=== PATIENT | male | born 1965 ===

== ENCOUNTER 2019-09-19 18:07 | Observation (INO) | payer OTHER, SELFPAY ==
[2019-09-19 18:13] VITALS: BP 152/89; PULSE 85; RESP 16; TEMP 36.4; O2SAT 95; BMI 35.7
--- NOTE | 2019-09-19 18:26 | ED.DIZZY ---
HPI - Dizziness General Chief Complaint: Dizziness Stated Complaint: has vertigo x2 days, sent by his doctor Time Seen by Provider: 09/19/19 18:25 Source: patient Mode of arrival: Ambulatory Limitations: no limitations History of Present Illness HPI Narrative: 54M former smoker with strong cardiovascular history in his family presents with his for evaluation of a possible stroke. He states he awoke suddenly yesterday morning at 3:00 a.m. and was profoundly dizzy and felt that the room was spinning top to bottom. He states that the dizziness tends to be made worse when he sits upright or leans forward and lasts approximately 1 minute and improves when lying flat. He denies any recent injury nor headache. He denies any history of same. He denies any other neurologic symptoms such as numbness, tingling or weakness. He denies any focal neurologic findings. He was seen and evaluated by his primary care provider and sent here for a larger workup. Denies recent injury. MD complaint: dizziness Onset (ago): day(s) Timing: sudden onset Description: sense of movement and room spinning History of similar episodes: No History of trauma: No Severity: mild Relieving factors: remaining still Exacerbating factors: movement Associated symptoms: denies other symptoms Related Data Home Medications Medication Instructions Recorded Confirmed atorvastatin 40 mg PO BEDTIME 09/19/19 09/19/19 meclizine 12.5 mg PO Q6HR 09/19/19 09/19/19 Allergies Allergy/AdvReac Type Severity Reaction Status Date / Time Sulfa (Sulfonamide Allergy Verified 09/19/19 18:13 Antibiotics) Review of Systems Constitutional Constitutional: Denies chills, Denies fatigue, Denies fever(s), Denies frequent falls, Denies lethargy and Denies weakness Eyes Eyes: Denies change in vision, Denies eye discharge, Denies irritation and Denies loss of vision ENT Ears, Nose, Mouth, and Throat: Denies change in voice, Reports vertigo, Reports dizziness, Denies neck pain, Denies sore throat and Denies throat swelling Cardiovascular Cardiovascular: Denies chest pain, Denies irregular heart rhythm, Denies lightheadedness, Denies palpitations, Denies dyspnea, Denies dyspnea on exertion and Denies orthopnea Respiratory Respiratory: Denies cough, Denies dyspnea, Denies dyspnea on exertion and Denies wheezing Gastrointestinal Gastrointestinal: Denies abdominal pain, Denies change in bowel habits, Denies diarrhea, Denies nausea and Denies vomiting Genitourinary Genitourinary: Denies hematuria, Denies flank pain, Denies urinary incontinence and Denies urinary urgency Musculoskeletal Musculoskeletal: Denies back pain, Denies muscle weakness, Denies neck pain, Denies numbness and Denies tingling Integumentary/Breasts Skin/Breast: Denies pruritus, Denies erythema, Denies rash and Denies wounds Neurologic Neurologic: Denies behavioral changes, Denies confusion, Reports vertigo, Reports dizziness, Denies frequent falls, Denies loss of vision, Denies numbness, Denies tingling and Denies weakness Psychiatric Psychiatric: Denies anxiety, Denies behavioral changes, Denies confusion, Denies depression, Denies homicidal ideation and Denies suicidal ideation Endocrine Endocrine: Denies fatigue, Denies flushing and Denies palpitations Hematologic/Lymphatic Hematologic/Lymphatic: Denies easy bruising Allergic/Immunologic Allergic/Immunologic: Denies urticaria, Denies throat swelling and Denies wheezing Patient History Medical History (Updated 09/19/19 @ 22:43 by AMISHA Velasquez) Hyperlipidemia (Acute) Left carpal tunnel syndrome (Acute) Obstructive sleep apnea (Acute) Surgical History (Updated 09/19/19 @ 22:43 by AMISHA Velasquez) No history of previous surgery (Acute) Family History (Updated 09/19/19 @ 22:48 by AMISHA Velasquez) Father Hyperlipidemia Mother Hypertension Cardiac disease Stented coronary artery Hypothyroidism Brother Obstructive sleep apnea Sister Obstructive sleep apnea Social History household members: spouse and children Smoking Status: Former smoker alcohol intake: former Smoking Status: Former smoker Exam Narrative Exam Narrative: GENERAL: [54] year old patient appears stated age. Obese, resting comfortably HEAD: Atraumatic. Normocephalic. EYES: Pupils equal round and reactive. Extraocular motions intact. No scleral icterus. No injection or drainage. ENT: Nose without bleeding, purulent drainage. Throat without erythema, tonsillar hypertrophy or exudate. Airway patent. NECK: Trachea midline. Non tender CARDIOVASCULAR: Regular rate and rhythm without murmurs, gallops, or rubs. RESPIRATORY: Clear to auscultation. Breath sounds equal bilaterally. No wheezes, rales, or rhonchi. GASTROINTESTINAL: Abdomen soft, non-tender, nondistended. EXTREMITIES: No edema or joint tenderness. BACK: Nontender without deformity or crepitance. No flank tenderness. NEURO: AOx3. SKIN: No rash or erythema of visible areas Initial Vital Signs Initial Vital Signs: Vital Signs Temperature 97.5 F L 09/19/19 18:13 Pulse Rate 85 09/19/19 18:13 Respiratory Rate 16 09/19/19 18:13 Blood Pressure 152/89 H 09/19/19 18:13 Pulse Oximetry 95 09/19/19 18:13 Scores NIH Stroke Scale Level of Conciousness: Alert, keenly responsive Ask month/age: Answers both questions correctly. Open/close eyes, close hand: Performs both tasks correctly Best gaze horizontal: Normal Visual haro: No visual loss Facial palsy: Normal symetrical movement Left arm drift: No drift for full 10 sec Right arm drift: No drift for full 10 sec Left leg drift: No drift for full 10 sec Right leg drift: No drift for full 10 sec Limb ataxia: Absent Sensory on face/arms/legs: Normal, no sensory loss Best language: No aphasia, normal Dysarthria: Normal Extinction or inattention: No abnormality Total NIH Stroke scale score: 0 Course Course Course Narrative: Head impulse test: No Loss of fixation with corrective saccade Nystagmus: unidirectional, vertical with patient sitting upright and tilting forward Skew Deviation: grossly absent Orders Ordered: ED Orders 09/19/19 19:01 CT head/brain wo con Stat 09/19/19 19:24 EKG-12 Lead Stat 09/19/19 19:40 Basic Metabolic Panel Stat Complete Blood Count AUTO DIFF Stat Troponin I Stat Acetaminophen (Tylenol) 650 mg PO Q6HR PRN PRN Reason: Fever/Mild Pain (1-3) Aspirin (Aspirin Ec) 81 mg PO DAILY [facility] Atorvastatin Calcium (Lipitor) 40 mg PO BEDTIME JOSLYN Last Admin: 09/19/19 23:42 Dose: 40 mg Documented by: SNEHA Enoxaparin Sodium (Lovenox) 40 mg SUBCUT DAILY JOSLYN Meclizine HCl (Antivert) 25 mg PO TID PRN PRN Reason: Vertigo Last Admin: 09/19/19 23:42 Dose: 25 mg Documented by: SNEHA Naloxone HCl (Narcan) 0.2 mg IV Q2MIN PRN PRN Reason: Opiate Reversal Ondansetron HCl (Zofran) 4 mg IV Q8HR PRN PRN Reason: Nausea And Vomiting Sodium Chloride (Normal Saline 0.9% Flush) 10 ml IV PRN PRN PRN Reason: Flush Sodium Chloride (Normal Saline 0.9% Flush) 10 ml IV BID JOSLYN Discontinued Medications Aspirin (Aspirin Chew) 324 mg PO NOW ONE Stop: 09/19/19 20:59 Last Admin: 09/19/19 21:03 Dose: 324 mg Documented by: ESTEFANY Sodium Chloride (Normal Saline 0.9%) 1,000 mls @ 150 mls/hr IV CONT JOSLYN Last Infusion: 09/19/19 22:05 Dose: 0 mls/hr Documented by: Admin: 09/19/19 19:40 Dose: 150 mls/hr Documented by: ESTEFANY Consultations Consultation #1: call to [facility] Neurology ([facility] Stroke Physician). We discuss rapid onset, largely reproduceable and perhaps fatigueable. Rodrigo Hallpike was not terribly helpful. Though patient did not currently have nystagmus I performed HINTS exam and discussed lack of classic peripheral findings with neurology. Given patient's risk profile, unclear etiology of dizziness, lack of classic exam findings for peripheral vertigo as well as inclement weather and his place of residence in the [facility] we share the opinion that patient meets TIA criteria and will need typical workup in the hospital including MRI +/- echo Consultation #2: hospitalist happy to accept on his service Vital Signs Vital signs: Vital Signs - 8 hr 09/19/19 18:13 09/19/19 18:53 09/19/19 19:45 Temperature 97.5 F L Pulse Rate 85 92 H 82 Respiratory Rate 16 17 16 Blood Pressure 152/89 H Blood Pressure [Right Arm] 156/93 H 112/91 H Pulse Oximetry 95 94 94 09/19/19 20:30 Temperature Pulse Rate 84 Respiratory Rate 16 Blood Pressure Blood Pressure [Right Arm] 146/94 H Pulse Oximetry 95 MDM - Dizziness Lab Data Result diagrams: 09/19/19 19:40 09/19/19 19:40 Labs: Lab Results 09/19/19 09/19/19 Range/Units 19:40 19:40 WBC 7.4 (4.5-11.0) X10^3/uL RBC 4.95 (4.5-5.9) X10^6/uL Hgb 15.6 (13.5-17.5) g/dL Hct 45.3 (41-53) % MCV 91.5 (80-100) fL MCH 31.5 (26-34) PG MCHC 34.4 (30-36) % RDW 14.8 (11.6-14.8) % Plt Count 323 (150-400) X10^3/uL Neut % (Auto) 58.3 (50-75) % Lymph % (Auto) 25.4 (25-40) % [place] % (Auto) 12.5 (3-14) % Eos % (Auto) 3.2 (2-4) % Baso % (Auto) 0.6 (0-2) % Neut # (Auto) 4300 (3112-4415) /uL Lymph # (Auto) 1900 (0180-8278) /uL [place] # (Auto) 900 (0-900) /uL Eos # (Auto) 200 (0-450) /uL Baso # (Auto) 0 (0-100) /uL Sodium 140 (137-145) mmol/L Potassium 3.8 (3.4-5.1) mmol/L Chloride 102 (98-107) mmol/L Carbon Dioxide 29 (22-32) mmol/L BUN 20 (9-20) mg/dL Creatinine 0.80 (0.66-1.25) mg/dL Estimated GFR > 60.0 (>60) mL/min BUN/Creatinine Ratio 25.0 H (6-22) Glucose 81 (70-100) mg/dL Calcium 9.4 (8.4-10.2) mg/dL Troponin I < 0.012 (0.01-0.034) ng/mL Discharge Plan Departure Patient Disposition: Admitted as Observation Clinical Impression: Transient cerebral ischemia Qualifiers: Transient cerebral ischemia type: unspecified Qualified Code(s): G45.9 - Transient cerebral ischemic attack, unspecified Discharge Date/Time: 09/19/19 21:32 Admit Date/Time: 09/19/19 20:59 Admit Provider: Zhang Oleary
[2019-09-19 18:53] VITALS: BP 156/93; PULSE 92; RESP 17; O2SAT 94
--- NOTE | 2019-09-19 19:01 | DI.CT.S_ITS ---
PROCEDURE: CT HEAD/BRAIN WO CON INDICATIONS: stroke like symptoms, sent by PCP TECHNIQUE: Noncontrast 4.5 mm thick angled axial sections acquired from the foramen magnum to the vertex, with coronal and sagittal reformats. For radiation dose reduction, the following was used: automated exposure control, adjustment of mA and/or kV according to patient size. COMPARISON: None. FINDINGS: Image quality: Excellent. CSF spaces: Basal cisterns are patent. No extra-axial fluid collections. Ventricles are normal in size and shape. Brain: No midline shift. No intracranial masses or hemorrhage. Spaulding-white matter interface is normal. Skull and face: Calvarium and visualized facial bones are intact, without suspicious lesions. Sinuses: Mild ethmoid sinus mucosal thickening. Mastoids are clear. IMPRESSION: 1. No acute intracranial abnormalities. 2. Cerebral volume loss and chronic microvascular ischemic changes. Dictated by: Radha Fish M.D. on 09/19/2019 at 19:41 Approved by: Radha Fish M.D. on 09/19/2019 at 19:44
[2019-09-19] MEDS: SODIUM CHLORIDE 0.9% 1,000 ML 150 ML IV (19:40)
[2019-09-19 19:45] VITALS: BP 112/91; PULSE 82; RESP 16; O2SAT 94
[2019-09-19 19:52] LABS: Add Manual Diff / Slide Review NO; Basophils Absolute Auto 0 /uL (0-100); Basophils Percent Auto 0.6 % (0-2); Eosinophils Absolute Auto 200 /uL (0-450); Eosinophils Percent Auto 3.2 % (2-4); Hematocrit 45.3 % (41-53); Hemoglobin 15.6 g/dL (13.5-17.5); Lymphocytes Absolute Auto 1900 /uL (1100-4500); Lymphocytes Percent Auto 25.4 % (25-40); Mean Corpuscular HGB Conc 34.4 % (30-36); Mean Corpuscular Hemoglobin 31.5 PG (26-34); Mean Corpuscular Volume 91.5 fL (80-100); Monocytes Absolute Auto 900 /uL (0-900); Monocytes Percent Auto 12.5 % (3-14); Neutrophils Absolute Auto 4300 /uL (1500-7000); Neutrophils Percent Auto 58.3 % (50-75); Platelet Count 323 X10^3/uL (150-400); Red Blood Cell Count 4.95 X10^6/uL (4.5-5.9); Red Cell Distribution Width 14.8 % (11.6-14.8); White Blood Cell Count 7.4 X10^3/uL (4.5-11.0)
[2019-09-19 20:06] LABS: Blood Urea Nitrogen 20 mg/dL (9-20); Calcium 9.4 mg/dL (8.4-10.2); Carbon Dioxide 29 mmol/L (22-32); Chloride 102 mmol/L (98-107); Estimated Glomerular Filt Rate > 60.0 mL/min (>60); Glucose 81 mg/dL (70-100); HEMOLYSIS 26 (0-50); Potassium 3.8 mmol/L (3.4-5.1); Sodium 140 mmol/L (137-145)
[2019-09-19 20:18] LABS: Troponin I < 0.012 ng/mL (0.01-0.034)
[2019-09-19 20:30] VITALS: BP 146/94; PULSE 84; RESP 16; O2SAT 95
[2019-09-19] MEDS: ASPIRIN 81 MG CHEW TAB 324 MG PO (21:03)
[2019-09-19 22:15] VITALS: BP 132/60; PULSE 96; RESP 18; TEMP 36.5; O2SAT 95
[2019-09-19 22:20] VITALS: BMI 35.7
--- NOTE | 2019-09-19 22:25 | P.HP_ITS ---
History of Present Illness History of Present Illness Date Patient Seen: 09/19/19 Time Patient Seen: 21:25 Chief complaint: has vertigo x2 days, sent by his doctor Narrative: Mr. Seymour De La Fuente is a 54-year-old male patient with history significant for hyperlipidemia, obstructive sleep apnea as well as a strong family history of cardiovascular disease who was sent to the ER by his primary care provider for persistent vertigo and stroke evaluation. The patient reports waking up suddenly at 3:00 a.m. yesterday with a severe vertigo in and up to down direction with associated diaphoresis and nausea. The patient states his symptoms are worsened by sitting or leaning forward and better when lying flat. He was able to return to sleep and upon waking in the morning had a recurrence of symptoms with the associated diaphoresis and nausea. Since that time he has had no more nausea or diaphoresis but with continued have vertigo. No prior episodes of vertigo, no history of trauma. He denies headache, ataxia or disequilibrium, has no numbness or tingling, no extremity weakness, visual changes, slurred speech or aphasia. The patient reports no recent illness, fevers or chills, nasal congestion or sore throat. He has no complaints of chest pain or palpitations or personal history of cardiac disease. He has no shortness of breath cough or wheezing and is a past smoker quitting 28 years ago. Reports no complaints of abdominal pain, has no heartburn and nausea has resolved. He denies urinary symptoms or changes in bowel habits. Upon arrival to the ER the patient is afebrile with a temperature 97.5?, heart rate of 85, blood pressure 152/89, respirations of 16 saturating 95% on room air. Patient underwent head CT which finds no acute intracranial abnormalities, notes cerebral volume loss and chronic microvascular changes. NIH score in the ED is 0. On laboratory analysis the patient has normal white count of 7 point, hemoglobin of 15.6, hematocrit of 45.3 and platelets of 323. His electrolytes are within normal range and has a BUN of 20 creatinine is 0.8. His nonfasting glucose is 81. Troponin is less than 0.012. HINTS exam finds vertical nystagmus, negative skew, negative corrective saccade. ED provider spoke with neurology regarding findings who presented concern for possible cerebellar lesion. Patient received aspirin 324 mg in the emergency department is admitted to the medicine service for vertigo, possible cerebellar TIA. Patient History Medical History (Updated 09/19/19 @ 22:43 by AMISHA Velasquez) Hyperlipidemia (Acute) Left carpal tunnel syndrome (Acute) Obstructive sleep apnea (Acute) Surgical History (Updated 09/19/19 @ 22:43 by AMISHA Velasquez) No history of previous surgery (Acute) Family & Social History Family History (Updated 09/19/19 @ 22:48 by AMISHA Velasquez) Father Hyperlipidemia Mother Hypertension Cardiac disease Stented coronary artery Hypothyroidism Brother Obstructive sleep apnea Sister Obstructive sleep apnea Safety & Behavioral: Feels Safe in Current Yes Environment Been Physically Hurt or No Threatened By a Person Tobacco & Substance use: Smoking Status Former smoker Comment: Patient lives in a single family home on [facility] with his to whom he has been for 22 years. He provides a history of his father having hyperlipidemia and related to an [place]. His mother is living and has hypertension hypothyroidism and has cardiac disease having had stent placement. He has 1 brother 1 sister both with obstructive sleep apnea. He has 4 children all reportedly in good health. 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 Alcohol: Patient quit drinking alcohol in 1991. Substance use the patient denies recreation pharmaceuticals herbal or cannabis products. Advanced directives: The patient does not have a formal advanced directive but states his desire to be FULL CODE. He designates his Nikki to be his surrogate decision maker. Meds Home Medications and Allergies Home Medications Medication Instructions Recorded Confirmed Type atorvastatin 40 mg PO BEDTIME 09/19/19 09/19/19 History meclizine 12.5 mg PO Q6HR 09/19/19 09/19/19 History Allergies Allergy/AdvReac Type Severity Reaction Status Date / Time Sulfa (Sulfonamide Allergy Verified 09/19/19 18:13 Antibiotics) Review of Systems Review of Systems Narrative: All systems reviewed and found unremarkable under discussed in the HPI above. Exam Vital Signs (past 8 hours): - 09/19/19 18:13 09/19/19 18:53 09/19/19 19:45 Temperature 97.5 F L Pulse Rate 85 92 H 82 Respiratory Rate 16 17 16 Blood Pressure 152/89 H Blood Pressure [Right Arm] 156/93 H 112/91 H Pulse Oximetry 95 94 94 09/19/19 20:30 09/19/19 22:15 Temperature 97.7 F Pulse Rate 84 96 H Respiratory Rate 16 18 Blood Pressure 132/60 Blood Pressure [Right Arm] 146/94 H Pulse Oximetry 95 95 Oxygen Delivery Method Room Air Narrative Exam Narrative: GENERAL APPEARANCE: well developed, obese male, in no acute distress. HEENT: Symmetrical face ease, no ptosis, PERRLA, conjunctiva clear, EOMs intact with positive vertical nystagmus, no sinus tenderness to percussion, no rhinorrhea, mucous membranes are moist and pink without lesions or exudate. NECK/THYROID: neck supple, no JVD, no carotid bruit, no thyromegaly, trachea midline. LYMPH NODES: no cervical or supraclavicular lymphadenopathy. SKIN: [place], warm and dry, no visible lesions, rashes, ulcerations or petechiae. HEART: regular rate and rhythm, S1-S2, no murmur, no rubs or gallops, brisk capillary refill, no edema LUNGS: clear to auscultation bilaterally, no coarseness crackles or wheezing, no cough present CHEST: Symmetrical movement, no accessory muscle use, good tidal volume. ABDOMEN: Soft, round, dull to percussion, nontender, no organomegaly, no flank tenderness, active bowel tones. BACK: Normal curvature, nontender to palpation. EXTREMITIES: moves all extremities, no extremity drift, strength is 5/5 and symmetrical, no deformities or joint effusions. NEUROLOGIC: AAO x4, no aphasia or ataxia, cranial nerves II-XII grossly intact, sensation intact to light touch, vertical nystagmus, negative skew or saccade. PSYCH: Good judgment, good insight, linear thought process, cooperative, a ppropriate with stable behavior Objective Labs Result Diagrams: 09/19/19 19:40 09/19/19 19:40 Labs: Laboratory Results - last 24 hr 09/19/19 09/19/19 19:40 19:40 WBC 7.4 RBC 4.95 Hgb 15.6 Hct 45.3 MCV 91.5 MCH 31.5 MCHC 34.4 RDW 14.8 Plt Count 323 Neut % (Auto) 58.3 Lymph % (Auto) 25.4 [place] % (Auto) 12.5 Eos % (Auto) 3.2 Baso % (Auto) 0.6 Neut # (Auto) 4300 Lymph # (Auto) 1900 [place] # (Auto) 900 Eos # (Auto) 200 Baso # (Auto) 0 Sodium 140 Potassium 3.8 Chloride 102 Carbon Dioxide 29 BUN 20 Creatinine 0.80 Estimated GFR > 60.0 BUN/Creatinine Ratio 25.0 H Glucose 81 Calcium 9.4 Troponin I < 0.012 Assessment & Plan Assessment & Plan narrative: This is a 54-year-old male patient with a history of hyperlipidemia and strong family history of cardiovascular disease who was sent by his primary care provider related to atypical vertigo and concern for possible stroke symptoms. Presentation is unclear for central versus peripheral etiology. 1. Acute atypical vertigo, possible TIA, present on admission, active -symptoms with abrupt onset 3:00 a.m. yesterday waking the patient from sleep. Associated symptoms of diaphoresis and nausea, now resolved. -symptoms have been continuous exacerbated by sitting up or leaning forward. No prodromal symptoms. No personal history of cardiovascular disease, no chest pain or palpitations, EKG is sinus rhythm. -NIH score is 0, ABCD2 score is 3. -positive vertical nystagmus, negative skew, negative saccade. No diplopia. -CT the head is negative for intracranial pathology. -ordered aspirin 81 mg daily. -meclizine 25 mg 3 times daily. -MRI stroke protocol in the morning. -patient on telemetry, will consider echo in the morning -obtain chemistries and lipid panel in the morning. 2. Hyperlipidemia, chronic, presumed stable. -will continue patient's home regimen of atorvastatin 40 mg at bedtime. -will obtain lipid panel in the morning. 3. Elevated blood pressure reading without diagnosis of hypertension, present on admission, active. -patient presents with blood pressure 152/89 upon arrival to the emergency department. -diastolic pressures remain elevated in the 90s while in the emergency department. -patient is on no antihypertensives, will monitor blood pressure and treat as needed. VTE prophylaxis: SCDs, Lovenox Diet: Heart healthy IVF: Saline lock The patient is admitted to the hospital related to severity symptoms the risk for potential complications adverse events. The patient is admitted as observation with expected length of stay to be less than 2 midnights. Scores ABCD2 Age >= 60 years: no Initial BP. Either SBP >= 140 or DBP >= 90.: yes Clinical features of the TIA: other symptoms Duration of symptoms: >= 60 minutes History of diabetes: no ABCD2 Score: 3 NIHSS Level of Conciousness: Alert, keenly responsive Ask month/age: Answers both questions correctly. Open/close eyes, close hand: Performs both tasks correctly Best gaze horizontal: Normal Visual haro: No visual loss Facial palsy: Normal symetrical movement Left arm drift: No drift for full 10 sec Right arm drift: No drift for full 10 sec Left leg drift: No drift for full 5 sec Right leg drift: No drift for full 5 sec Limb ataxia: Absent Sensory on face/arms/legs: Normal, no sensory loss Best language: No aphasia, normal Dysarthria: Normal Extinction or inattention: No abnormality Total NIH Stroke scale score: 0
[2019-09-19] MEDS: MECLIZINE HCL 12.5 MG TABLET 25 MG PO (23:42)
[2019-09-19] MEDS: ATORVASTATIN 20 MG TABLET 40 MG PO (23:42)
[2019-09-19 23:51] VITALS: BP 142/72; PULSE 95; RESP 19; TEMP 36.8; O2SAT 96
--- NOTE | 2019-09-20 00:06 | PC.NURSE ---
Addendum entered by Ambar Wolf R.N. 09/20/19 04:01: Up to bathroom. Initial dizziness when going from lying to sitting position which resolved after 1 minute. Walked to the bathroom with SBA. Denies any nausea or diaphoresis. Denies pain. NIH remains 0. Original Note: Patient is alert and oriented with NIH of 0. Breath sounds CTA with RA sat of 96%. HRR with telemetry reading of SR w/1st degree AVB; BP elevated at 142/74. Denies nausea. BT present and abdomen is soft. Denies dysuria, frequency or urgency. Able to move self in bed. States he has dizziness with movement; medicated with Meclizine. Discussed need to have SBA when out of bed related to dizziness in order to prevent falls and patient/ verbalize understanding. Denies pain. Calf SCD's applied as per MD order. Fall risk score is moderate and bed alarm is activated.
[2019-09-20 04:07] VITALS: BP 129/85; PULSE 82; RESP 18; TEMP 36.9; O2SAT 95
[2019-09-20 05:41] LABS: BUN Creatinine Ratio 23.3 (6-22); Blood Urea Nitrogen 21 mg/dL (9-20); Calcium 8.9 mg/dL (8.4-10.2); Carbon Dioxide 27 mmol/L (22-32); Chloride 102 mmol/L (98-107); Estimated Glomerular Filt Rate > 60.0 mL/min (>60); Glucose 98 mg/dL (70-100); HEMOLYSIS < 15 (0-50); Magnesium 1.8 mg/dL (1.6-2.3); Potassium 3.9 mmol/L (3.4-5.1); Sodium 138 mmol/L (137-145)
[2019-09-20 06:26] LABS: Prothrombin Time 11.5 SECONDS (10.1-12.7)
[2019-09-20 06:27] LABS: PTT Partial Thromboplastin Tim 31 SECONDS (26.4-36.2)
[2019-09-20 06:46] VITALS: BMI 36.6
[2019-09-20 07:10] LABS: Cholesterol 194 mg/dL (140-199); HDL Cholesterol 24 mg/dL (40-60); LDL Cholesterol Calculated 135 mg/dL (<100); Triglycerides 174 mg/dL (35-150)
[2019-09-20] MEDS: ASPIRIN EC 81 MG TABLET PO (08:03)
[2019-09-20] MEDS: ENOXAPARIN 40 MG/0.4 ML SYRINGE SUBCUT (08:03)
[2019-09-20] MEDS: SODIUM CHLORIDE 0.9% FLUSH 10 ML IV (08:11)
[2019-09-20] MEDS: MECLIZINE HCL 12.5 MG TABLET 25 MG PO ×2 (08:11→14:07)
--- NOTE | 2019-09-20 08:12 | PC.NURSE ---
Addendum entered by Isak Conner R.N. 09/20/19 14:38: Patient remains alert and oriented with a NIH scale of 0. Symptoms of dizziness continue intermittently, patient states that ordered meclizine helpful with symptoms. Care is ongoing. Original Note: Nurse Note Patient AandOx4 upon start of shift. NIH stroke scale score 0. Patient reports continued dizziness with ambulation, but states that the dizziness recedes after a period of standing. Patient denies any new symptoms as of this time. Care is ongoing.
[2019-09-20 09:30] VITALS: BP 129/100; PULSE 89; RESP 18; TEMP 36; O2SAT 97
--- NOTE | 2019-09-20 10:26 | PT.IIE ---
Surgical History (Last Updated 09/19/19 @ 22:43 by AMISHA Velasquez) No history of previous surgery (Acute) Medical History (Last Updated 09/19/19 @ 22:43 by AMISHA Velasquez) Hyperlipidemia (Acute) Left carpal tunnel syndrome (Acute) Obstructive sleep apnea (Acute) Physical Therapy Inpatient Evaluation/Re-Eval M1 PT/OT-IP Prior Functional Status Start: 09/20/19 08:40 Freq: NEEDED Status: Active Protocol: Document 09/20/19 09:00 (Rec: 09/20/19 10:24 [id number]) Medical Review Prior Functional Status Medical History Reviewed Yes Communication no deficits noted. Able to make needs known Mobility and Gait independent without AD. Active lifestyle Activities of Daily Living and IADL's independent for all ADLs and IADLs Social History Household Members spouse,children Living Arrangements House Number of Floors (Floors) One Floor Number of Stairs To Enter/Railing? 3 [place] w/o rail + door step Home Environment Standard Height Toilet,Walk in Shower,Built-In Shower Seat Employment Status [employer] Employed Additional Social History Comment Pt lives with his and 3/4 children and mother in law at [facility]. 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 The patient reports waking up suddenly at 3:00 a.m. yesterday with a severe vertigo in and up to down direction with associated diaphoresis and nausea. The patient states his symptoms are worsened by sitting or leaning forward and better when lying flat. No prior episodes of vertigo, no history of trauma. M2 PT-IP Current Condition Start: 09/20/19 08:40 Freq: NEEDED Status: Active Protocol: Document 09/20/19 09:00 (Rec: 09/20/19 10:24 [id number]) Physical Therapy Current Condition Current Condition Evaluation Date 09/20/19 Treatment Diagnosis Acute vertigo, difficulty in balance Onset Date 09/18/19 Weight Bearing Status Weight Bearing Status Full Weight Bearing M3 PT-IP Subjective Start: 09/20/19 08:40 Freq: NEEDED Status: Active Protocol: Document 09/20/19 09:00 (Rec: 09/20/19 10:24 [id number]) Subjective Physical Therapy Visit Type Type Initial Evaluation Visit Start Time 09:00 Visit Stop Time 09:45 Total Visit Minutes 45 Notes Per RN note, pt c/o vertigo with bed mobility and initiation of movement but recedes after a period of standing/ walking. Dr. Sullivan ordered MRI screen at 1030 am this morning to rule out TIA/ possible cerebellar stroke. Number of PARACHUTE RIGGER Visits 0 Physical Therapy Visit Comments Patient Comments Im getting better but it still makes me sweat when i have the vertigo especially getting in and out of the bed. Patient Goals To be vertigo free and return home with family. Therapy Pain Assessment Pain Present Pain Present Denied Pain M4 PT-IP Mobility and Gait Start: 09/20/19 08:40 Freq: NEEDED Status: Active Protocol: Document 09/20/19 09:00 (Rec: 09/20/19 10:24 [id number]) PT-Bed Mobility Assessment Supine to Sit Supine to Sit Standby Assistance Scooting Scooting to Edge of Bed Standby Assistance Scooting Up and Down in Bed Standby Assistance PT-Transfer Assessment Sit to and From Stand Sit to and from Stand Standby Assistance Equipment Transfer Assistive Device Gait Belt Orthotic/Prosthetic Devices or Brace: No Transfers Transfer Destination Bed,Chair Transfer Technique Stand Step Pivot Transfer Ability Level of Assist Standby Assistance Comments Mobility Comments Pt was up in bed upon assessment. Performed dione jason pike and Pat manuever for the first 20 minutes. (see treatment section) He then completed supine to long sit with SBA and bed rails since pt reported of fear of vertigo . He then sat at L EOB and able to sit to stand with SBA. He was able to amb to hallway after with SBA and no AD. He then returned to chair after gait assessment. No LOB noted. Call light within reach. Gait Assessment Gait Gait Assistance Required: Standby Assistance Distance (Feet) 300 Able to Maintain Weight Bearing Status Yes During Gait Assistive Devices Assistive Device Gait Belt Orthotic/Prosthetic Devices or Brace: No Gait Deviations General Gait Pattern Within Normal Limits Factors Limiting Gait Function Factors Limiting Gait Function Poor Balance Comments Gait Comments Pt denies discomfort during amb after Pat manuever. He was able to amb with head turns horizontally/ vertically without discomfort/ LOB. Stair Climbing Assessment Evaluation Level of Assist On Stairs Standby Assistance Technique/Endurance Stair Climbing Direction Ascend and Descend Stair Climbing Technique Step Over Step Number of Steps Climbed 3 Query Text: Stair Climbing Set # Repetitions (reps) 2 PT-Balance Assessment Sitting Balance and Reactions Static Sitting Balance Ability Normal Dynamic Sitting Balance Ability Normal Standing Balance and Reactions Static Standing Balance Ability Normal Dynamic Standing Balance Ability Normal Device Used none M5 PT-IP Objective Assessments Start: 09/20/19 08:40 Freq: NEEDED Status: Active Protocol: Document 09/20/19 09:00 (Rec: 09/20/19 10:24 [id number]) Orientation Orientation/Cognition Level of Alertness Alert Orientation Name,Age,Birthday,Month,Date, Year,Day of Week,Place, Situation Language Function Ability No Deficits Noted Safety Awareness Understands Safety Issues Memory Description No Deficits Noted Gross Range of Motion Upper Extremity ROM Assessment Within Functional Limits Lower Extremity ROM Assessment Within Functional Limits Strength Upper Extremity Strength Assessment Within Functional Limits Lower Extremity Strength Assessment Within Functional Limits Coordination Assessment Gross Coordination Gross Coordination WNL Assessment Finger to Nose Test Normal Performance Pronation/Supination Test Normal Performance Foot Tapping Test Normal Performance Heel on Corona Test Normal Performance Sensation Assessment Sensation Gross Sensation WNL Light Touch Intact Proprioception (Position) Intact Muscle Tone Muscle Tone WNL Yes M6 PT-IP Treatment Start: 09/20/19 08:40 Freq: NEEDED Status: Active Protocol: Document 09/20/19 09:00 (Rec: 09/20/19 10:24 [id number]) Physical Therapy Treatment Other Treatments Other Treatment Performed dione hallpike assessment performed and pt was +ve for R posterior canal which shows upbeat and horizontal nystagmus. Performed Pat's manuever who has nystagmus up to 30 secs for 1st position, 15 secs for 2nd position and ~ 5 secs for 3rd position. Pt reports mild dizziness after but tolerable. He was able to amb 300 ft , along with head turns without LOB/ dizziness. M7 PT-IP Assessment and Plan Start: 09/20/19 08:40 Freq: NEEDED Status: Active Protocol: Document 09/20/19 09:00 (Rec: 09/20/19 10:24 [id number]) PT Summary Assessment and Plan Potential Rehabilitation Potential Excellent Status of Condition at Evaluation Stable Summary Impairments Balance Assessment Summary Pt is a low complexity 54yo male admitted to for acute vertigo. CT scan =-ve and pt is scheduled to have MRI to rule out possible TIA/ cerebellar stroke. Pt shows + ve at R posterior canal for Dixhallpike assessment and performed Pat's manuever after. Pt reponded well with decreased vertigo symptoms but cont to have residual dizziness but was tolerable to him. He was able to amb in AC unit without AD, along with vertical/ horizontal head turns. Recommended pt to mobilize with nursing assistance at this point. Notified Dr. Sullivan regarding his BPPV symptoms. Pt will be safe to go home with his supportive family assistance once his medically stable with resolved symptoms/ MRI = -ve. He will also benefit from outpatient vestibular rehab . Goals Bed Mobility Goal Independent Transfer Goal Independent Gait Goal Independent Gait Distance 500 Frequency of Treatment Frequency Of Treatment Twice a Day Treatment Plan Physical Therapy Treatment Plan Bed Mobility Training,Transfer Training,Gait Training, Therapeutic Exercise,Balance Retraining,Post Op Education, Discharge Planning, Neuromuscular Re-ed,Manual Therapy Other Recommendations and Next Treatment reassess vestibular symptoms Focus bed mob, stair training Recommendations To Nursing Amount of Assist Needed Standby Assistance Discharge Recommendations PT Discharge Recommendations Home with Assistance, Outpatient PT
--- NOTE | 2019-09-20 11:31 | PM.DS.1 ---
History of Present Illness History of Present Illness Date Patient Seen: 09/20/19 Time Patient Seen: 11:31 Chief complaint: has vertigo x2 days, sent by his doctor Narrative: Mr. Seymour De La Fuente is a 54-year-old male patient with history significant for hyperlipidemia, obstructive sleep apnea as well as a strong family history of cardiovascular disease who was sent to the ER by his primary care provider for persistent vertigo and stroke evaluation. The patient reports waking up suddenly at 3:00 a.m. yesterday with a severe vertigo in and up to down direction with associated diaphoresis and nausea. The patient states his symptoms are worsened by sitting or leaning forward and better when lying flat. He was able to return to sleep and upon waking in the morning had a recurrence of symptoms with the associated diaphoresis and nausea. Since that time he has had no more nausea or diaphoresis but with continued have vertigo. No prior episodes of vertigo, no history of trauma. He denies headache, ataxia or disequilibrium, has no numbness or tingling, no extremity weakness, visual changes, slurred speech or aphasia. The patient reports no recent illness, fevers or chills, nasal congestion or sore throat. He has no complaints of chest pain or palpitations or personal history of cardiac disease. He has no shortness of breath cough or wheezing and is a past smoker quitting 28 years ago. Reports no complaints of abdominal pain, has no heartburn and nausea has resolved. He denies urinary symptoms or changes in bowel habits. Upon arrival to the ER the patient is afebrile with a temperature 97.5?, heart rate of 85, blood pressure 152/89, respirations of 16 saturating 95% on room air. Patient underwent head CT which finds no acute intracranial abnormalities, notes cerebral volume loss and chronic microvascular changes. NIH score in the ED is 0. On laboratory analysis the patient has normal white count of 7 point, hemoglobin of 15.6, hematocrit of 45.3 and platelets of 323. His electrolytes are within normal range and has a BUN of 20 creatinine is 0.8. His nonfasting glucose is 81. Troponin is less than 0.012. HINTS exam finds vertical nystagmus, negative skew, negative corrective saccade. ED provider spoke with neurology regarding findings who presented concern for possible cerebellar lesion. Patient received aspirin 324 mg in the emergency department is admitted to the medicine service for vertigo, possible cerebellar TIA. Discharge Providers Provider Date of admission: 09/19/19 20:59 Discharge Date: 09/20/19 Primary care physician: Ki Valentin Consults: 09/19/19 22:19 Consult to Discharge Planning Routine Comment: 09/19/19 22:20 Consult to Physical Therapy Evaluate & Treat Comment: Vertigo, poss cerebellar CVA Physician Instructions: Evaluate and Treat 09/19/19 22:23 Consult to Occupational Therapy Evaluate & Treat Comment: vertigo, possible cerebellar CVA Physician Instructions: Evaluate and treat Discharge provider: Zhang Sullivan DO Summary Hospital Course Discharge Diagnosis: 1. BPPV, acute, present on admission, improving. 2. HLD, chronic 3. Elevated blood pressure without diagnosis of HTN. Hospital Course: This is a 54-year-old male patient with a history of hyperlipidemia and strong family history of cardiovascular disease who was sent by his primary care provider related to atypical vertigo and concern for possible stroke symptoms. Presentation was unclear for central versus peripheral etiology, however MRI was unremarkable, and symptoms are consistent with BPPV. 1. BPPV -patient was admitted with symptoms of BPPV but there was concern given his medical comorbidities including hyperlipidemia and elevated blood pressure on arrival over concern for possible stroke. CT head was negative, an MRI done the next morning was also negative. Patient was seen by physical therapy as well. His symptoms improved over the course of the hospitalization. Symptoms are reproducible especially upon head and turning to the right. -will give outpatient referral to PT here, given there is a vestibular specialist -continue meclizine as needed 2. Hyperlipidemia, chronic, presumed stable. -will continue patient's home regimen of atorvastatin 40 mg at bedtime. -lipid panel here showed poor control with elevated LDL, however patient admits he does not take it every day. Provided counseling on daily adherence to his medications. 3. Elevated blood pressure reading without diagnosis of hypertension, present on admission, active. -patient presents with blood pressure 152/89 upon arrival to the emergency department. -diastolic pressures remain elevated in the 90s while in the emergency department. -patient is on no antihypertensives, his blood pressure remains mildly elevated. He should follow-up with his primary care provider for further blood pressure check as an outpatient. Exam Vital Signs (past 8 hours): - 09/20/19 04:07 09/20/19 09:30 Temperature 98.4 F 96.8 F L Pulse Rate 82 89 Respiratory Rate 18 18 Blood Pressure 129/85 129/100 H Pulse Oximetry 95 97 Oxygen Delivery Method Room Air Oxygen Flow Rate 0 Narrative Exam Narrative: GENERAL APPEARANCE: Well developed, well nourished, in no acute distress. SKIN: Inspection of the skin reveals no rashes, ulcerations or petechiae. HEENT: The sclerae were anicteric and conjunctivae were pink and moist. Extraocular movements were intact and pupils were equal, round with normal accommodation. External inspection of the ears and nose showed no scars, lesions, or masses. Lips, teeth, and gums showed normal mucosa. The oral mucosa, hard and soft palate, tongue and posterior pharynx were unremarkable. No nystagmus was noted. NECK: Supple and symmetric. There was no thyroid enlargement, and no tenderness, or masses were felt. CHEST: Normal AP diameter and normal contour without any kyphoscoliosis. LUNGS: Auscultation of the lungs revealed no wheezes, rhonchi, or rales. CARDIOVASCULAR: There was a regular rate and rhythm without any murmurs, gallops, rubs. Peripheral pulses were 2+ and symmetric. ABDOMEN: Soft and nontender with normal bowel sounds. No ascites was noted. MUSCULOSKELETAL: There was no tenderness or effusions noted. Muscle strength and tone were normal. EXTREMITIES: No cyanosis, clubbing or edema. NEUROLOGIC: Alert and oriented x 3. Normal affect. Gait was normal. Strength is +5/5 in the Upper Extremities and Lower Extremities Bilaterally. Sensation to touch was normal. Rapid alternating movements smooth and coordinated, heel to neville unremarkable. Finger to nose testing also unremarkable. Patient complained of increasing dizziness when lying flat and when head was turned to the right. No nystagmus was noted upon head turn. CN2-12 grossly intact b/l. Objective Labs Result Diagrams: 09/19/19 19:40 09/20/19 05:00 Labs: Laboratory Results - last 24 hr 09/19/19 09/19/19 09/20/19 19:40 19:40 05:00 WBC 7.4 RBC 4.95 Hgb 15.6 Hct 45.3 MCV 91.5 MCH 31.5 MCHC 34.4 RDW 14.8 Plt Count 323 Neut % (Auto) 58.3 Lymph % (Auto) 25.4 Rooks % (Auto) 12.5 Eos % (Auto) 3.2 Baso % (Auto) 0.6 Neut # (Auto) 4300 Lymph # (Auto) 1900 Rooks # (Auto) 900 Eos # (Auto) 200 Baso # (Auto) 0 PT 11.5 INR 1.0 APTT 31 Sodium 140 Potassium 3.8 Chloride 102 Carbon Dioxide 29 BUN 20 Creatinine 0.80 Estimated GFR > 60.0 BUN/Creatinine Ratio 25.0 H Glucose 81 Calcium 9.4 Magnesium Troponin I < 0.012 Triglycerides Cholesterol LDL Cholesterol, Calc HDL Cholesterol 09/20/19 09/20/19 05:00 05:00 WBC RBC Hgb Hct MCV MCH MCHC RDW Plt Count Neut % (Auto) Lymph % (Auto) Rooks % (Auto) Eos % (Auto) Baso % (Auto) Neut # (Auto) Lymph # (Auto) Rooks # (Auto) Eos # (Auto) Baso # (Auto) PT INR APTT Sodium 138 Potassium 3.9 Chloride 102 Carbon Dioxide 27 BUN 21 H Creatinine 0.90 Estimated GFR > 60.0 BUN/Creatinine Ratio 23.3 H Glucose 98 Calcium 8.9 Magnesium 1.8 Troponin I Triglycerides 174 H Cholesterol 194 LDL Cholesterol, Calc 135 H HDL Cholesterol 24 L Discharge Plan Discharge Plan Patient Disposition: Home Discharge comment: You were admitted to the hospital for dizziness over concern for a possible stroke. Your MRI was normal and your symptoms are consistent with BPPV. Please continue meclizine as needed and continue to take your lipitor every day. I have given you a referral for PT here so that you can be seen by a vestibular specialist. Discharge orders & Medications Prescriptions: Continued atorvastatin 40 mg Tablet 40 mg PO BEDTIME RF: 0 meclizine 12.5 mg Tablet 12.5 mg PO Q6HR RF: 0 Follow up/Referrals: Ki Valentin [Primary Care Provider] - Jose Flanagan, PT [Physical Therapist] - 3-5 Days (For vestibular therapy for BPPV) Discharge Health Status Health Concerns: BPPV, Right Diet/Activity/Treatments Diet: Diet as Tolerated Activity: As tolerated, sit up slowly and avoid positional changes. Visit Report/Discharge Packet Instructions: Benign Paroxysmal Positional Vertigo Discharge Data Primary Care Provider: Ki Valentin Attending Provider: Zhang Oleary Admit Date/Time: 09/19/19 20:59
--- NOTE | 2019-09-20 11:45 | OT.IP.EVAL ---
Past Medical History (Last Updated 09/19/19 @ 22:43 by AMISHA Velasquez) Hyperlipidemia (Acute) Left carpal tunnel syndrome (Acute) Obstructive sleep apnea (Acute) Surgical History (Last Updated 09/19/19 @ 22:43 by AMISHA Velasquez) No history of previous surgery (Acute) Occupational Therapy Inpatient Evaluation/Re-Eval M1 PT/OT-IP Prior Functional Status Start: 09/20/19 12:33 Freq: NEEDED Status: Active Protocol: Document 09/20/19 12:33 [facility] (Rec: 09/20/19 12:58 [facility] [id number]) Medical Review Prior Functional Status Medical History Reviewed Yes Diet/Fluid Consistency Regular,Thin Liquids Communication no deficits noted. Able to make needs known Mobility and Gait independent without AD. Active lifestyle Activities of Daily Living and IADL's independent for all ADLs and IADLs Social History Household Members spouse,children Living Arrangements House Number of Floors (Floors) One Floor Number of Stairs To Enter/Railing? 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 The patient reports waking up suddenly at 3:00 a.m. yesterday with a severe vertigo in and up to down direction with associated diaphoresis and nausea. The patient states his symptoms are worsened by sitting or leaning forward and better when lying flat. No prior episodes of vertigo, no history of trauma. M2 OT-IP Current Condition Start: 09/20/19 12:33 Freq: Status: Active Protocol: Document 09/20/19 12:33 [facility] (Rec: 09/20/19 12:58 [facility] [id number]) Occupational Therapy Current Condition Current Condition Evaluation Date 09/20/19 Treatment Diagnosis Benign Paroxysmal Positional Vertigo Diagnosis Onset Date 09/19/19 Weight Bearing Status Weight Bearing Status Weight Bear as Tolerated M3 OT- IP Subjective and Pain Start: 09/20/19 12:33 Freq: Status: Active Protocol: Document 09/20/19 12:33 [facility] (Rec: 09/20/19 12:58 [facility] [email or web address]) OT- Subjective Occupational Therapy Visit Type Type Initial Evaluation Visit Start Time 11:45 Visit Stop Time 12:15 Total Visit Minutes 30 Occupational Therapy Visit Comments Patient Comments Pt states still feeling dizzy and not feeling steady on his feet. OT Pain Assessment Pain When Pain Assessed At Rest Pain Present Pain Present Denied Pain M4 OT- IP ADL's Start: 09/20/19 12:33 Freq: Status: Active Protocol: Document 09/20/19 12:33 [facility] (Rec: 09/20/19 12:58 [facility] [id number]) OT OFX-Xfpu-Alatvpy Comments OT Self-Feeding Comments Pt able to drink from this water bottle but not feeling up to eating at this time. OT ADL-Grooming General Evaluation Grooming Ability Independent Comments OT Grooming Comments Independent, however feeling dizzy and needing SBA for safety. OT ADL-Oral Care General Eval Oral Care Ability Independent OT ADL-Dressing Comments OT Dressing Comments Educated pt to go slowly and not move his head suddenly and in extreme movements especially to the right. Suggested use of LB dressing equipment, pt refusing at the time and states his kids and can assist at home. OT ADL-Toileting Comments OT Toileting Comments Pt not having to use the toilet. OT ADL-Bathing Comments OT Bathing Comments Pt not wanting to shower at this time. M6 OT- IP Functional Cognition Start: 09/20/19 12:33 Freq: Status: Active Protocol: Document 09/20/19 12:33 [facility] (Rec: 09/20/19 12:58 [facility] [id number]) Cognitive Factors Limiting Selfcare Function Cognitive Ability Level of Alertness Alert Patient Orientation Name,Place,Situation Attention Span Ability Capable of Focused Attention, Capable of Sustained Attention Ability to Follow Commands Able to Follow Multi-Step Commands Memory Description No Deficits Noted Safety Awareness Underestimates Need for Assistance Cognitive Comments Cognitive Assessment Comments Pt appears to be at baseline for cognition, just needing reminders to get help at home especially since he is dizzy and at times unsteady on his feel. OT- Vision and Hearing OT- Vision Assessment Vision Assessment Comments Nystagmus noted when scanning from side to side. M7 OT- IP Mobility and Balance Start: 09/20/19 12:33 Freq: Status: Active Protocol: Document 09/20/19 12:33 [facility] (Rec: 09/20/19 12:58 [facility] [id number]) OT- Bed Mobility Assessment Supine to Sit Supine to Sit Assist Independent Sit to Supine Sit to Supine Assist Independent Scooting Scooting to Edge of Bed Independent OT-Transfer Assessment Sit to and From Stand Sit to and from Stand Independent,Standby Assistance Transfers Transfer Ability Standby Assistance Technique Transfer Destination Bed,Chair Devices Transfer Assistive Devices None Comments Mobility Comments Pt initially tends to pull up into long sitting from bed mobility and complaining of being dizzy, educated to do log rolling instead and move slower and pt states dizziness was better. Pt able to walk in the room without assist to be able to garbage pick up worker his backpack and get items for grooming. Towards the end of grooming, pt getting very dizzy and having to sit down and needing close SBA to walk back to the recliner as swaying a little with his gait . BP 168/108 and 151/97, hospitalist aware. OT- Gait Assessment Comments Gait Ability Comments Pending on pt's dizziness, may need hand held assist or possible device especially if walking outside on the snow and uneven surfaces. Informed PT of pt's unsteadiness. OT- Balance Assessment Sitting Balance and Reactions Static Sitting Balance Ability Normal Standing Balance and Reactions Static Standing Balance Ability Good M8 OT- IP Objective Assessments Start: 09/20/19 12:33 Freq: Status: Active Protocol: Document 09/20/19 12:33 [facility] (Rec: 09/20/19 12:58 [facility] [email or web address]) OT Gross Range of Motion Upper Extremity Range of Motion Assessment Within Functional Limits OT Strength Upper Extremity Strength Assessment Within Functional Limits M9 OT- IP Assessment and Plan Start: 09/20/19 12:33 Freq: Status: Active Protocol: Document 09/20/19 12:33 [facility] (Rec: 09/20/19 12:58 [facility] [email or web address]) OT Summary Assessment and Plan Potential Rehabilitation Potential Good Analytic Complexity at Evaluation Low Summary OT Impairments Balance,Functional Mobility, Dressing,Toileting,Bathing Progress Towards Goals Slow Progress due to Medical Issues Assessment Summary Pt here for BPPV and looking to go home today. Initially to take a cab to the [place] however due to increased unsteadiness on his feet after OT eval, OT expressed concerned for pt walking on his own and best to have his come and pick him up from the hospital . Pt's to be called by case management to come and pick him up. Mainly pt needing assist due to spells of dizziness and otherwise is independent for needs. Hospital put in a referral to see vestibular specialist. Goals Self-Feeding Goal Independent Grooming Goal Independent Dressing Goal Independent Toileting Goal Independent Bathing Goal Independent Toilet Transfer Goal Independent Shower Transfer Goal Independent Days to Meet Goals 1 Frequency of Treatment Frequency Of Treatment Once a Day Treatment Plan OT Treatment Plan ADL Training,Patient/Family Education Discharge Recommendations OT Discharge Recommendations Home with Assistance, Outpatient PT
--- NOTE | 2019-09-20 11:54 | CM.DANOTE ---
Addendum entered by Magalys Leonard, SERGIO 09/20/19 13:55: New update: just spoke with PT Carmela, vestibular specialist who came over from the OUTPT [facility] clinic and just worked with pt. She reports successful treatment and does agree that pt should have another tx after d/c. She is recommending a FWW and OT Kaur will issue this from the Therapy consigment closet and bill to pt's insurance, per pt's request. Order/obtained and given to Kaur to process. Nikki has arranged for a neighbor to pick pt up and this is expected to occur later this afternoon. Addendum entered by Magalys Leonard LPN 09/20/19 12:37: DC specifics have now changed as pt continues to feel dizzy since being up with OT and is currently sitting in bed, lunch tray untouched as does not yet feel well enough to do anything but get myself back in balance. He agrees with OT that a walk on to ferry would not be recommended at this point. He has spoken with his Nikki to see if she can pick him up and she is currently trying to arrange her schedule which involves several appts for their children. Dr. Sullivan arrived during the conversation. He confirms that no more can be done by keeping pt in the hospital but does agree that he can stay until his can be here to get him as long as this is sometime today. Have now cancelled the [employer] taxi via vm and called pt's (at pt's request) to further explain need for her or someone else to pick him up. She stated she would look at her day and see how to coordinate this, she said that she had all current ferry info so that would not be a problem. She does request that pt be fully ready for d/c when she arrives. There are a couple of ferry runs into the evening.... ALEX Parisi is updated and agreeable to do as much of the d/c paperwork as he can so that pt is ready. Original Note: Discharge Planning/Care Management DCP: assessment: case received, EMR reviewed and discussed in Team Rounds. Dr. Sullivan stated that MRI was pending and that if - CVA he planned to send pt back home with OUTPT PT vestibular therapy. OT and PT were ordered. Was updated just now by Dr. Sullivan that pt was fine for d/c and needed to be on the afternoon ferry to [place] and a way to get there. Met now briefly with pt as he was working with OT. Introduced self and role. Pt is a 54 year old male who admitted last night to care of hospitalist team. Payer: Aet Admission status: OBS: confirmed by UR ALEX Fuentes. Pt admits to some ongoing dizziness as he is up at the sink with OT but does confirm he needs assist getting back home today. He states his will pick him up at the ferry dock. Checked schedule for him and confirmed that 3:05 ferry to [place] with arrival at 4:15. Agreed to set up [employer] taxi (part of the free service for pt's from the [facility]) [phone]/done: [employer] otr flatbed company truck driver will pick pt up at the FRONT entrance of [facility] at 2:30 and take him to the ferry terminal. Pt confirms that he feels able to walk on by himself and Dr. Sullivan agreeable to same. BARON Herrnig is updated and will update ALEX Parisi when he returns to the floor. CM Discharge Assessment Start: 09/20/19 11:53 Freq: Status: Active Protocol: Document 09/20/19 11:53 ITV (Rec: 09/20/19 11:54 ITV [id number]) Discharge Planning Assessment Advance Directives? No History Provided By Patient,Medical Record Prior Living Arrangements House Household Members spouse,children Review Status In Process
[2019-09-20 12:00] VITALS: BP 140/94; PULSE 89; RESP 18; TEMP 36.3; O2SAT 98
--- NOTE | 2019-09-20 14:00 | PT.IPTN ---
Physical Therapy Treatment Note M2 PT-IP Current Condition Start: 09/20/19 08:40 Freq: NEEDED Status: Active Protocol: Document 09/20/19 09:00 [facility] (Rec: 09/20/19 10:24 [facility] [id number]) Physical Therapy Current Condition Current Condition Evaluation Date 09/20/19 Treatment Diagnosis Acute vertigo, difficulty in balance Onset Date 09/18/19 Weight Bearing Status Weight Bearing Status Full Weight Bearing M3 PT-IP Subjective Start: 09/20/19 08:40 Freq: NEEDED Status: Active Protocol: Document 09/20/19 14:02 [facility] (Rec: 09/20/19 14:25 [facility] [email or web address]) Subjective Physical Therapy Visit Type Type Treatment Note Visit Start Time 13:00 Visit Stop Time 13:45 Total Visit Minutes 50 Number of BROKERAGE CLERK Visits 0 Physical Therapy Visit Comments Patient Comments Patient was seated at EOB with feet hanging off holding on to railing. Patient reported that he was feeling slightly foggy and that when he got up with OT, he felt very off balance. After he had worked with the other PT, pt reported he felt slightly better but then he had the MRI for 40 minutes and didn't feel really great after that. Currently, patient reported that he was nervous to walk without the walker because he felt unbalanced. Patient also reported that he was glad that he didn't have a stroke. Therapy Pain Assessment Pain Present Pain Present Denied Pain M4 PT-IP Mobility and Gait Start: 09/20/19 08:40 Freq: NEEDED Status: Active Protocol: Document 09/20/19 14:02 [facility] (Rec: 09/20/19 14:25 [facility] [id number]) PT-Transfer Assessment Sit to and From Stand Sit to and from Stand Independent Equipment Transfer Assistive Device Front Wheeled Walker Comments Mobility Comments Patient felt increased stability when moving with the FWW. Gait Assessment Gait Gait Assistance Required: Standby Assistance Distance (Feet) 100 Able to Maintain Weight Bearing Status Yes During Gait Assistive Devices Assistive Device Gait Belt,Front Wheeled Walker Gait Deviations General Gait Pattern Decreased Stride Length Factors Limiting Gait Function Factors Limiting Gait Function Decreased Activity Tolerance Comments Gait Comments Patient felt slightly dizzy when walking with FWW though he did look stable. Patient was walking with a slow gait. PT-Balance Assessment Sitting Balance and Reactions Static Sitting Balance Ability Normal Dynamic Sitting Balance Ability Normal Standing Balance and Reactions Static Standing Balance Ability Normal Dynamic Standing Balance Ability Normal Device Used none M5 PT-IP Objective Assessments Start: 09/20/19 08:40 Freq: NEEDED Status: Active Protocol: Document 09/20/19 09:00 HH (Rec: 09/20/19 10:24 HH [id number]) Orientation Orientation/Cognition Level of Alertness Alert Orientation Name,Age,Birthday,Month,Date, Year,Day of Week,Place, Situation Language Function Ability No Deficits Noted Safety Awareness Understands Safety Issues Memory Description No Deficits Noted Gross Range of Motion Upper Extremity ROM Assessment Within Functional Limits Lower Extremity ROM Assessment Within Functional Limits Strength Upper Extremity Strength Assessment Within Functional Limits Lower Extremity Strength Assessment Within Functional Limits Coordination Assessment Gross Coordination Gross Coordination WNL Assessment Finger to Nose Test Normal Performance Pronation/Supination Test Normal Performance Foot Tapping Test Normal Performance Heel on Corona Test Normal Performance Sensation Assessment Sensation Gross Sensation WNL Light Touch Intact Proprioception (Position) Intact Muscle Tone Muscle Tone WNL Yes M6 PT-IP Treatment Start: 09/20/19 08:40 Freq: NEEDED Status: Active Protocol: Document 09/20/19 14:02 EG (Rec: 09/20/19 14:25 [facility] [id number]) Physical Therapy Treatment Education Education Provided Precautions Other Treatments Other Treatment Performed Fay Manuever for R posterior canal - 15 seconds of upbeating torsional nystagmus which is consistant with R posterior canal canalithiasis BPPV M7 PT-IP Assessment and Plan Start: 09/20/19 08:40 Freq: NEEDED Status: Active Protocol: Document 09/20/19 14:02 [facility] (Rec: 09/20/19 14:25 [facility] [id number]) PT Summary Assessment and Plan Potential Rehabilitation Potential Excellent Status of Condition at Evaluation Stable Summary Impairments Balance Assessment Summary Patient tolerated treatment well this afternoon. Patient has decreased dizziness and/or symptoms throughout Fay Maneuver treatment but slight nystagmus was observed when head was extended and slightly rotated to R. After treatment , patient did feel less foggy and did not experience increase in dizziness when treatment was completed. PT's hypothesis that after the fay maneuver was performed earlier today, lying flat in MRI for 40 minutes may have disturbed the position of the canaliths. Patient was educated on correct head position for the next 24 hours and what BPPV is and how it presents. Patient was sent home with recommendation of FWW to increase safety and stability when transporting home. Goals Bed Mobility Goal Independent Transfer Goal Independent Gait Goal Independent Gait Distance 500 Frequency of Treatment Frequency Of Treatment Discharge Treatment Plan Physical Therapy Treatment Plan Bed Mobility Training,Transfer Training,Gait Training, Therapeutic Exercise,Balance Retraining,Post Op Education, Discharge Planning, Neuromuscular Re-ed,Manual Therapy Other Recommendations and Next Treatment refer to OP PT to follow up Focus with condition. retail marketing manager was asked to put orders in for FWW to have pt transport home . Plan to vend FWW once orders are set Recommendations To Nursing Amount of Assist Needed Standby Assistance Discharge Recommendations PT Discharge Recommendations Home with Assistance, Outpatient PT Carmela Hernandez DPT, performed some and supervised all treatment performed by, and agreed with the plan of care, as performed by Gina Padilla, FLORIN.
--- NOTE | 2019-09-20 15:00 | OT.IP.TRT ---
Occupational Therapy Treatment Note M2 OT-IP Current Condition Start: 09/20/19 12:33 Freq: Status: Active Protocol: Document 09/20/19 12:33 [facility] (Rec: 09/20/19 12:58 [facility] [email or web address]) Occupational Therapy Current Condition Current Condition Evaluation Date 09/20/19 Treatment Diagnosis Benign Paroxysmal Positional Vertigo Diagnosis Onset Date 09/19/19 Weight Bearing Status Weight Bearing Status Weight Bear as Tolerated M3 OT- IP Subjective and Pain Start: 09/20/19 12:33 Freq: Status: Active Protocol: Document 09/20/19 14:37 [facility] (Rec: 09/20/19 14:59 [facility] [email or web address]) OT- Subjective Occupational Therapy Visit Type Type Treatment Note Visit Start Time 14:15 Visit Stop Time 14:39 Total Visit Minutes 24 Occupational Therapy Visit Comments Patient Comments Saw pt for a second visit to go over ADl's as PT - vestibular specialist wanting pt not to move his head by looking down or up . Patient/Caregiver Goals To go home today. OT Pain Assessment Pain When Pain Assessed At Rest Pain Present Pain Present Denied Pain M4 OT- IP ADL's Start: 09/20/19 12:33 Freq: Status: Active Protocol: Document 09/20/19 14:37 [facility] (Rec: 09/20/19 14:59 [facility] [email or web address]) OT WQV-Vzhk-Cehtbrf General Evaluation Self-Feeding Ability Independent OT ADL-Dressing General Eval Lower Body Dressing Ability Minimal Assistance Comments OT Dressing Comments Pt educated on use of accounts receivable representative/ sock aid/long handled shoe horn as pt not suppose to look up or down due to just having treatment for BPPV earlier with PT. In addition pt's family can assist pt. OT ADL-Toileting Comments OT Toileting Comments Educated pt to stand to wipe to prevent form leaning over with his head. OT ADL-Bathing Comments OT Bathing Comments Pt not wanting to shower at this time. M6 OT- IP Functional Cognition Start: 09/20/19 12:33 Freq: Status: Active Protocol: Document 09/20/19 14:37 [facility] (Rec: 09/20/19 14:59 [facility] [id number]) Cognitive Factors Limiting Selfcare Function Cognitive Comments Cognitive Assessment Comments Pt having better awareness of his needs now. M7 OT- IP Mobility and Balance Start: 09/20/19 12:33 Freq: Status: Active Protocol: Document 09/20/19 14:37 [facility] (Rec: 09/20/19 14:59 [facility] [email or web address]) OT-Transfer Assessment Sit to and From Stand Sit to and from Stand Independent Transfers Transfer Ability Independent Comments Mobility Comments Per PT best for pt to have a FWW, therefore able to set-up and issue FWW to the pt. OT- Gait Assessment Comments Gait Ability Comments Pt having good safety with FWW use. M8 OT- IP Objective Assessments Start: 09/20/19 12:33 Freq: Status: Active Protocol: Document 09/20/19 12:33 [facility] (Rec: 09/20/19 12:58 [facility] [email or web address]) OT Gross Range of Motion Upper Extremity Range of Motion Assessment Within Functional Limits OT Strength Upper Extremity Strength Assessment Within Functional Limits M9 OT- IP Assessment and Plan Start: 09/20/19 12:33 Freq: Status: Active Protocol: Document 09/20/19 14:37 [facility] (Rec: 09/20/19 14:59 [facility] [email or web address]) OT Summary Assessment and Plan Potential Rehabilitation Potential Excellent Analytic Complexity at Evaluation Low Summary Progress Towards Goals Progressing Toward Goals Assessment Summary Pt looking to go home today, pt's friend to pick him up. Goals Self-Feeding Goal Independent Grooming Goal Independent Dressing Goal Independent Toileting Goal Independent Bathing Goal Independent Toilet Transfer Goal Independent Shower Transfer Goal Independent Days to Meet Goals 1 Frequency of Treatment Frequency Of Treatment Twice a Day Treatment Plan OT Treatment Plan Patient/Family Education Discharge Recommendations OT Discharge Recommendations Home with Assistance, Outpatient PT
[2019-09-20 15:33] VITALS: BP 160/92; PULSE 86; RESP 18; TEMP 36.5; O2SAT 94
--- NOTE | 2019-09-20 18:05 | PC.NURSE ---
Assumed care of pt at 1500. Pt sleeping during bedside hand-off. Awakens. Pt dressed. Tele removed. IV removed by student RN. Discharge teaching completed by Student RN and this RN. Pt verbalized understanding of all d/c instructions. Friend arrived at approx 1745. Pt escorted to private vehicle by CAKE KNOCKER and pt's friend with all personal belongings and d/c packet. Pt left in stable condition.
--- NOTE | 2019-09-20 22:21 | DI.MRI.S_ITS ---
PROCEDURE: MR STROKE Pre- and post-contrast brain MRI, non-contrast brain MR angiogram, pre- and postcontrast neck MR angiogram INDICATIONS: Vertigo, r/o CVA TECHNIQUE: Brain: Noncontrast axial T1 spin echo, axial T2 fast spin echo, sagittal and axial FLAIR, coronal T2 fast spin echo, axial gradient echo, axial diffusion and ADC through the brain. After the administration of contrast, axial 3D VIBE of the cranial vasculature and brain. Brain MRA: Non-contrast 3-D time of flight MR angiogram, with multiple uxrtbct-ekxtanvcp-bndggiytlz (MIP) reformats performed. Neck MRA: Axial and sagittal TruFISP through the neck. Coronal dynamic MR angiogram during administration of contrast in the arterial and venous phases, with 3-dimenstional qdzpwra-eiffqlgdl-xxnkwdzxtd (MIP) reformats constructed from subtraction images. COMPARISON: [facility], CT, CT HEAD/BRAIN WO CON, 09/19/2019, 19:08. FINDINGS: Image quality: Excellent. BRAIN: CSF spaces: Ventricles are normal in size and shape. Basal cisterns are patent. No extra-axial fluid collections. Brain: No intracranial bleeds or mass effects. Spaulding-white matter interface is normal. Diffusion weighted images show no acute ischemic insults. Brainstem appears normal. Normal intravascular flow voids are present. No abnormal intracranial enhancement. Skull and face: Calvarial marrow signal is normal. Orbits appear normal. Sinuses: Sinuses and mastoids are clear. BRAIN MR ANGIOGRAM: Anterior circulation: Intracranial internal carotid arteries are normal in size and enhancement. The flow within the paired anterior cerebral arteries is normal and symmetric. The flow within the middle cerebral arteries is normal and symmetric. The anterior communicating artery is seen. No stenoses, occlusions, or aneurysms. Posterior circulation: The visualized portions of the vertebral arteries demonstrate normal caliber, and join to form a normal appearing basilar artery. The flow within the posterior cerebral arteries is normal and symmetric. No stenoses, occlusions, or aneurysms. NECK MR ANGIOGRAM: Carotids: Great vessels demonstrate a conventional anatomy as they arise from the aortic arch. The origins of the common carotid arteries appear patent. The calibers and courses of both common carotid arteries are normal. The bifurcation regions appear normal bilaterally. The internal carotid arteries demonstrate normal course and caliber. Posterior circulation: The origins of the vertebral arteries appear patent. More superior portions of both vertebral arteries demonstrate normal course and caliber, and join to form a normal appearing basilar artery. Miscellaneous: Subclavian arteries appear patent. Pre-contrast images through the neck show no soft tissue abnormalities. IMPRESSION: BRAIN MRI: No sign of acute or subacute ischemic injury. No prior stroke is found. Excellent appearance of the brain parenchyma. BRAIN MR ANGIOGRAM: Normal intracranial MR angiogram. NECK MR ANGIOGRAM: Normal cervical MR angiogram. Dictated by: Anirudh Gupta M.D. on 09/20/2019 at 11:18 Approved by: Anirudh Gupta M.D. on 09/20/2019 at 11:20
== END 2019-09-20 17:45 | disposition home or self-care (01) ==
LOC: ED 20:59 → AC 21:00
PROVIDERS: Admitting Provider Nurse Practitioner Adult Health; Emergency Provider Emergency Medicine; PCP Family Medicine; Visit Provider Nurse Practitioner Adult Health
DX: R42 Dizziness and giddiness (principal); Z87.891 Personal history of nicotine dependence; E78.5 Hyperlipidemia, unspecified; G47.33 Obstructive sleep apnea (adult) (pediatric); R03.0 Elevated blood-pressure reading, without diagnosis of hypertension
CPT/HCPCS: 36415; 70450; 70548; 70553; 80048; 80061; 83735; 84484; 85025; 85610; 85730; 93005; 95992; 96360; 96361; 96372; 97116; 97140; 97161; 97165; 97535; 99284; 99285; G0378; A9579; J1650

== ENCOUNTER → 2021-04-05 08:46 | Outpatient (CLI) | payer OTHER, SELFPAY ==
[2021-04-05 19:19] LABS: Add Manual Diff / Slide Review NO; Basophils Absolute Auto 100 /uL (0-100); Basophils Percent Auto 0.9 % (0-2); Eosinophils Absolute Auto 400 /uL (0-450); Hematocrit 43.3 % (41-53); Hemoglobin 14.5 g/dL (13.5-17.5); Lymphocytes Absolute Auto 1500 /uL (1100-4500); Lymphocytes Percent Auto 21.1 % (25-40); Mean Corpuscular HGB Conc 33.5 % (30-36); Mean Corpuscular Hemoglobin 28.4 PG (26-34); Mean Corpuscular Volume 84.8 fL (80-100); Monocytes Absolute Auto 800 /uL (0-900); Monocytes Percent Auto 11.6 % (3-14); Neutrophils Absolute Auto 4400 /uL (1500-7000); Neutrophils Percent Auto 61.4 % (50-75); Platelet Count 299 X10^3/uL (150-400); Red Blood Cell Count 5.11 X10^6/uL (4.5-5.9); Red Cell Distribution Width 15.3 % (11.6-14.8); White Blood Cell Count 7.1 X10^3/uL (4.5-11.0)
[2021-04-05 19:27] LABS: Alanine Aminotransferase 36 IU/L (<50); Albumin 4.1 g/dL (3.5-5.0); Albumin Globulin Ratio 1.4 (1.0-2.8); Alkaline Phosphatase 92 U/L (38-126); Aspartate Aminotransferase 35 IU/L (17-59); BUN Creatinine Ratio 24.4 (6-22); Bilirubin Total 0.5 mg/dL (0.2-1.3); Blood Urea Nitrogen 19 mg/dL (9-20); Calcium 9.8 mg/dL (8.4-10.2); Carbon Dioxide 27 mmol/L (22-32); Chloride 103 mmol/L (98-107); Cholesterol 174 mg/dL (140-199); Estimated Glomerular Filt Rate > 60.0 mL/min (>60); Glucose 96 mg/dL (70-100); HDL Cholesterol 30 mg/dL (40-60); HEMOLYSIS < 15 (0-50); LDL Cholesterol Calculated 107 mg/dL (<100); Potassium 3.8 mmol/L (3.4-5.1); Sodium 138 mmol/L (137-145); Total Protein 7.1 g/dL (6.3-8.2); Triglycerides 184 mg/dL (35-150)
[2021-04-05 19:28] LABS: Hemoglobin A1C% w Est Avg Glu 5.7 % (4.0-6.0)
[2021-04-05 19:42] LABS: Vitamin D 25 Hydroxy (D3) 24.1 ng/mL (30.0-100.0)
[2021-04-05 20:31] LABS: Folate 14.6 ng/mL (2.76-20.0); Vitamin B12 250 pg/mL (239-931)
== END ==
PROVIDERS: PCP Family Medicine; Visit Provider Family Medicine
DX: E53.8 Deficiency of other specified B group vitamins (principal); E55.9 Vitamin D deficiency, unspecified; E78.5 Hyperlipidemia, unspecified; R73.09 Other abnormal glucose
CPT/HCPCS: 80053; 80061; 82306; 82607; 82746; 83036; 85025

== ENCOUNTER → 2022-06-14 09:30 | Outpatient (CLI) | payer OTHER, SELFPAY ==
[2021-04-16 13:51] VITALS: BMI 36.6
[2022-06-14 19:44] LABS: Alanine Aminotransferase 37 IU/L (<50); Albumin 4.1 g/dL (3.5-5.0); Albumin Globulin Ratio 1.3 (1.0-2.8); Alkaline Phosphatase 96 U/L (38-126); Aspartate Aminotransferase 35 IU/L (17-59); BUN Creatinine Ratio 15.5 (6-22); Bilirubin Total 0.5 mg/dL (0.2-1.3); Blood Urea Nitrogen 13 mg/dL (9-20); Calcium 8.9 mg/dL (8.4-10.2); Carbon Dioxide 28 mmol/L (22-32); Chloride 101 mmol/L (98-107); Cholesterol 145 mg/dL (140-199); Estimated Glomerular Filt Rate > 60 mL/min (>60); Globulin 3.1 g/dL (1.7-4.1); Glucose 93 mg/dL (70-100); HDL Cholesterol 29 mg/dL (40-60); HEMOLYSIS < 15 (0-50); LDL Cholesterol Calculated 91 mg/dL (<100); Sodium 139 mmol/L (137-145); Total Protein 7.2 g/dL (6.3-8.2); Triglycerides 126 mg/dL (35-150)
[2022-06-14 20:30] LABS: Vitamin B12 450 pg/mL (239-931)
== END ==
PROVIDERS: PCP Family Medicine; Visit Provider Family Medicine
DX: E53.8 Deficiency of other specified B group vitamins (principal); E55.9 Vitamin D deficiency, unspecified; E78.5 Hyperlipidemia, unspecified; I10 Essential (primary) hypertension
CPT/HCPCS: 80053; 80061; 82306; 82607

== ENCOUNTER → 2023-05-24 08:35 | Outpatient (CLI) | payer OTHER, SELFPAY ==
[2021-04-16 13:51] VITALS: BMI 36.6
[2023-05-24 20:06] LABS: Add Manual Diff / Slide Review NO; Basophils Absolute Auto 0 /uL (0-100); Basophils Percent Auto 0.7 % (0-2); Eosinophils Absolute Auto 200 /uL (0-450); Eosinophils Percent Auto 2.9 % (2-4); Hematocrit 43.7 % (41-53); Hemoglobin 14.7 g/dL (13.5-17.5); Lymphocytes Absolute Auto 1200 /uL (1100-4500); Lymphocytes Percent Auto 19.1 % (25-40); Mean Corpuscular HGB Conc 33.6 % (30-36); Mean Corpuscular Hemoglobin 27.8 PG (26-34); Mean Corpuscular Volume 82.6 fL (80-100); Monocytes Absolute Auto 700 /uL (0-900); Monocytes Percent Auto 10.9 % (3-14); Neutrophils Absolute Auto 4200 /uL (1500-7000); Neutrophils Percent Auto 66.4 % (50-75); Platelet Count 321 X10^3/uL (150-400); Red Blood Cell Count 5.29 X10^6/uL (4.5-5.9); Red Cell Distribution Width 17.1 % (11.6-14.8); White Blood Cell Count 6.3 X10^3/uL (4.5-11.0)
[2023-05-24 20:19] LABS: BUN Creatinine Ratio 23.7 (6-22); Blood Urea Nitrogen 18 mg/dL (9-20); Calcium 9.6 mg/dL (8.4-10.2); Carbon Dioxide 28 mmol/L (22-32); Chloride 101 mmol/L (98-107); Cholesterol 236 mg/dL (140-199); Estimated Glomerular Filt Rate > 60 mL/min (>60); Glucose 92 mg/dL (70-100); HDL Cholesterol 28 mg/dL (40-60); HEMOLYSIS < 15 (0-50); LDL Cholesterol Calculated 168 mg/dL (<100); Potassium 3.9 mmol/L (3.4-5.1); Sodium 139 mmol/L (137-145); Triglycerides 200 mg/dL (35-150)
[2023-05-24 20:30] LABS: Vitamin D 25 Hydroxy (D3) 19.7 ng/mL (30.0-100.0)
[2023-05-24 21:07] LABS: Vitamin B12 375 pg/mL (239-931)
== END ==
PROVIDERS: PCP Family Medicine; Visit Provider Family Medicine
DX: Z86.73 Personal history of transient ischemic attack (TIA), and cerebral infarction without residual deficits (principal); E53.8 Deficiency of other specified B group vitamins; E55.9 Vitamin D deficiency, unspecified; I10 Essential (primary) hypertension
CPT/HCPCS: 80048; 80061; 82306; 82607; 85025

== ENCOUNTER → 2024-02-27 08:41 | Outpatient (CLI) | payer OTHER, SELFPAY ==
[2023-06-12 16:21] VITALS: BMI 36.6
[2024-02-27 19:46] LABS: Add Manual Diff / Slide Review NO; Basophils Absolute Auto 0 /uL (0-100); Basophils Percent Auto 0.6 % (0-2); Eosinophils Absolute Auto 300 /uL (0-450); Eosinophils Percent Auto 3.9 % (2-4); Hematocrit 40.1 % (41-53); Hemoglobin 13.5 g/dL (13.5-17.5); Lymphocytes Absolute Auto 1300 /uL (1100-4500); Lymphocytes Percent Auto 19.2 % (25-40); Mean Corpuscular HGB Conc 33.7 % (30-36); Mean Corpuscular Hemoglobin 28.1 PG (26-34); Mean Corpuscular Volume 83.3 fL (80-100); Monocytes Absolute Auto 800 /uL (0-900); Monocytes Percent Auto 11.5 % (3-14); Neutrophils Absolute Auto 4400 /uL (1500-7000); Neutrophils Percent Auto 64.8 % (50-75); Platelet Count 261 X10^3/uL (150-400); Red Blood Cell Count 4.82 X10^6/uL (4.5-5.9); Red Cell Distribution Width 16.8 % (11.6-14.8); White Blood Cell Count 6.8 X10^3/uL (4.5-11.0)
[2024-02-27 19:59] LABS: BUN Creatinine Ratio 20.7 (6-22); Blood Urea Nitrogen 19 mg/dL (9-20); Carbon Dioxide 27 mmol/L (22-32); Chloride 104 mmol/L (98-107); Cholesterol 171 mg/dL (140-199); Estimated Glomerular Filt Rate > 60 mL/min (>60); Glucose 91 mg/dL (70-100); HDL Cholesterol 35 mg/dL (40-60); HEMOLYSIS < 15 (0-50); LDL Cholesterol Calculated 105 mg/dL (<100); Potassium 4.3 mmol/L (3.4-5.1); Sodium 139 mmol/L (137-145); Triglycerides 156 mg/dL (35-150)
[2024-02-27 20:08] LABS: Vitamin D 25 Hydroxy (D3) 37.1 ng/mL (30.0-100.0)
[2024-02-27 20:31] LABS: Prostate Specific Antigen Scrn 1.11 ng/mL (0.1-4.0)
[2024-02-27 20:50] LABS: Vitamin B12 199 pg/mL (239-931)
== END ==
PROVIDERS: PCP Family Medicine; Referring Provider Family Medicine; Visit Provider Family Medicine
DX: Z12.5 Encounter for screening for malignant neoplasm of prostate (principal); I10 Essential (primary) hypertension; E78.2 Mixed hyperlipidemia; E55.9 Vitamin D deficiency, unspecified; E53.8 Deficiency of other specified B group vitamins; Z82.49 Family history of ischemic heart disease and other diseases of the circulatory system; Z86.73 Personal history of transient ischemic attack (TIA), and cerebral infarction without residual deficits
CPT/HCPCS: 80048; 80061; 82306; 82607; 85025; G0103